=== PATIENT | female | born 1980 | race Caucasian/White ===

== ENCOUNTER 2023-01-11 13:57 | Emergency (ER) | payer OTHER ==
[~2023-01-11] VITALS: Ht 154.9 cm; Wt 52.8 kg
[2023-01-11] MEDS ORDERED: SODIUM CHLORIDE 0.9% 1000ML 1,000 ML IV SCH (14:15)
[2023-01-11] MEDS ORDERED: CIPRO500 MG PO (14:29)
[2023-01-11] MEDS ORDERED: IOPAMIDOL 370 MG/ML 100 ML INFUS..BTL INJ ONE (14:57)
[2023-01-11] MEDS ORDERED: POTASSIUM CHLORIDE 20 MEQ TAB CR PO ONE (15:47)
[2023-01-11] MEDS ORDERED: POTASSIUM CHLORIDE 20 MEQ TAB CR PO STA (15:49)
[2023-01-11] MEDS ORDERED: POTASSIUM CHLO20 ME1 PO (16:00)
[2023-01-11] MEDS ORDERED: NAPROSYN500 MG PO (16:00)
== END 2023-01-11 16:09 | disposition home or self-care (01) ==
LOC: EDBD 14:03 → FSED 14:03
DX: R10.31 Right lower quadrant pain (principal); N83.201 Unspecified ovarian cyst, right side; E87.6 Hypokalemia; R30.0 Dysuria; F17.290 Nicotine dependence, other tobacco product, uncomplicated
CPT/HCPCS: 74177; 80053; 80307; 81003; 81025; 85025; 99284; J7030; Q9967